=== PATIENT | male | born 1980 | race Caucasian/White ===

== ENCOUNTER 2021-09-20 17:19 | Emergency (ER) | payer BC, SELFPAY ==
--- NOTE | 2021-09-20 17:21 | ED.SKABFB ---
HPI - Skin/Abscess/Foreign Bdy General Chief complaint: Skin/Abscess/Foreign Body Stated complaint: Rash Time Seen by Provider: 09/20/21 17:20 Source: patient Mode of arrival: ambulatory Limitations: no limitations History of Present Illness HPI narrative: Mr. Bagley is a 40-year-old male patient presenting to the clinic today with complaints of a rash x5 to 7 days. He reports its that the rash started on his arms and has spread to his face, legs, neck, and groin. Rash is itchy and red. States that he had been clearing out brush outside. Related Data Allergies Allergy/AdvReac Type Severity Reaction Status Date / Time Sulfa (Sulfonamide Allergy Mild Rash Verified 09/20/21 17:40 Antibiotics) metoclopramide [From Reglan] AdvReac Mild Other Verified 09/20/21 17:40 Review of Systems Review of Systems: Pertinent positives per HPI. Patient denies any fever, chills, headache, visual changes, dizziness, cough, runny nose, sore throat, shortness of breath, chest pain, palpitations, nausea, vomiting, diarrhea, constipation, abdominal pain, or any urinary issues. PMFSH Comments At the time of my signature, I reviewed and agree with the nursing past medical, surgical, social, and family history. There is no relevant family history pertinent to the patient complaint. Exam Narrative: General: Well-developed, well nourished, in no apparent distress Head: Normocephalic, atraumatic. Cardio: Regular rate and rhythm, s1 and s2 normal, no murmur appreciated. Resp: Clear to auscultation bilaterally, no rhonchi, rales, wheezing or rubs. Integumentary: [place], warm, and dry, intact without lesion, red, raised, itchy, blistery rash to bilateral forearms, upper arms, face-near left eye/nasal bridge,right side of anterior neck, legs, and groin Course Course Emergency Course: Portions of this record may have been created with voice recognition software. Level of Care: Express Care Visit Vital Signs Vital signs: Vital signs reviewed MDM - Skin/Abscess/Foreign Bdy MDM Narrative Medical decision making narrative: At the time of visit patient is resting comfortably on the exam table. I suspect the patient has allergic contact dermatitis due to plant. Since he has the rash to his face and groin I will give him shot of Decadron 10 mg IM. Prescription for prednisone sent to the pharmacy for him to start tomorrow. Supportive measures were discussed with the patient he voiced understanding of discharge instructions and agrees to the treatment plan. Discharge Plan Discharge Clinical Impression: Allergic contact dermatitis due to plant Patient Disposition: Home, Self-Care Condition: Stable Instructions: Antibiotic Form, Poison Yulia (ED), Cold Compress or Soak (ED) Additional Instructions: Decadron 10 mg IM given in the clinic today. Prednisone 40 mg daily x5 days start taking tomorrow September 21, 2021. Avoid scratching May take Benadryl 25 to 50 mg every 6 hours as needed for itching May apply calamine lotion to the affected areas Avoid hot showers. Follow-up with your PCP in 3 to 5 days if symptoms persist or sooner if they worsen Prescriptions: New prednisone 20 mg tablet 40 mg PO DAILY 5 Days Qty: 10 0RF Follow-up/Referrals: UNKNOWN,DOCTOR [Non-Staff] - Time of Disposition: 17:34 Quality NIHSS Nursing Documentation ED NIHSS nursing documentation: reviewed/agree
[2021-09-20 17:27] VITALS: BP 136/81; PULSE 82; RESP 16; TEMP 36.8; O2SAT 97
== END 2021-09-20 18:00 | disposition home or self-care (01) ==
LOC: EXPBETH 17:24
PROVIDERS: Emergency Provider Nurse Practitioner Family
DX: L23.7 Allergic contact dermatitis due to plants, except food (principal); K50.90 Crohn's disease, unspecified, without complications; K21.9 Gastro-esophageal reflux disease without esophagitis; G25.81 Restless legs syndrome; F41.9 Anxiety disorder, unspecified; F32.A Depression, unspecified
CPT/HCPCS: 96372; 99213; G0463; J1100